=== PATIENT | male | born 1985 ===

== ENCOUNTER 2017-10-12 14:39 | Inpatient (IN) | payer OTHER ==
[2017-10-12 14:49] VITALS: O2SAT 99
--- NOTE | 2017-10-12 15:49 | ED PDOC ---
HPI: Psych/Substance Abuse Time Seen by Provider: 10/12/17 15:14 Chief Complaint (Nursing): Psychiatric Evaluation Chief Complaint (Provider): Crisis evaluation History Per: Patient History/Exam Limitations: no limitations Onset/Duration Of Symptoms: Intermittent Episodes, Persistent Current Symptoms Are (Timing): Still Present Associated Symptoms: Anxiety, Depression, Suicidal Thoughts. denies: Suicidal Plan Additional Complaint(s): 32yo male, with no past medical history, presents to ED for evaluation as he has been "struggling." Patient states intermittently for the past couple years, he has been having episodes where he feels normal and then he feels "down for a couple months". Patient states recently he has been having suicidal thoughts but denies a plan. Patient reports he has been using marijuana to self medicate as well as has taken "pills" from a friend who suffers from anxiety to help with his own symptoms. Patient reports increased familial stress. Denies any medical complaints. Past Medical History Reviewed: Historical Data, Nursing Documentation, Vital Signs Vital Signs: Last Vital Signs Temp 97.0 F L 10/12/17 14:45 Pulse 89 10/12/17 14:45 Resp 16 10/12/17 14:45 BP 148/98 H 10/12/17 14:45 Pulse Ox 99 10/12/17 14:45 - Medical History PMH: Asthma - Surgical History Surgical History: No Surg Hx - Family History Family History: States: No Known Family Hx, Unknown Family Hx - Social History Current smoker - smoking cessation education provided: No Ex-Smoker (has not smoked in the last 12 months): No Alcohol: None Drugs: Cannabis - Immunization History Hx Tetanus Toxoid Vaccination: (updated 6 months ago as per patient) - Home Medications Home Medications: Ambulatory Orders Medication Instructions Recorded Amoxicillin/Potassium Clav 1 tab PO BID #14 tab 04/26/15 [Augmentin 500 mg-125 mg] Acetaminophen/Hydrocodone Bi 1 tab PO QID PRN #10 tab 08/08/15 [Vicodin 300 mg-5 mg] - Allergies Allergies/Adverse Reactions: Allergies Allergy/AdvReac Type Severity Reaction Status Date / Time No Known Allergies Allergy Verified 09/09/16 03:28 Review of Systems ROS Statement: Except As Marked, All Systems Reviewed And Found Negative Psych: Positive for: Anxiety, Depression, Suicidal ideation Physical Exam - Reviewed Nursing Documentation Reviewed: Yes Vital Signs Reviewed: Yes - Physical Exam Appears: Positive for: Non-toxic Skin: Positive for: Normal Color Eye Exam: Positive for: Normal appearance, EOMI, PERRL Neck: Positive for: Normal, Supple Cardiovascular/Chest: Positive for: Regular Rate, Rhythm Respiratory: Positive for: Normal Breath Sounds. Negative for: Respiratory Distress Gastrointestinal/Abdominal: Positive for: Normal Exam, Soft. Negative for: Tenderness Extremity: Positive for: Normal ROM. Negative for: Deformity, Swelling Neurologic/Psych: Positive for: Alert, Oriented. Negative for: Motor/Sensory Deficits - Laboratory Results Result Diagrams: 10/12/17 16:15 10/12/17 16:15 - ECG O2 Sat by Pulse Oximetry: 99 (RA) Pulse Ox Interpretation: Normal Medical Decision Making Medical Decision Making: Time: 1525 Impression: Crisis evaluation Plan: -- CBC -- Alcohol serum -- CMP -- UDS -- Urinalysis -- Crisis evaluation -- 1:1 observation Reassess pt is medically cleared. pt will require admission to psychiatric unit for anxiety under MD Carly Scribe Attestation: Documented by Alisha Stapleton acting as a scribe for JAIRO Up Provider Attestation: All medical record entries made by the Scribe were at my direction and personally dictated by me. I have reviewed the chart and agree that the record accurately reflects my personal performance of the history, physical exam, medical decision making, and the department course for this patient. I have also personally directed, reviewed, and agree with the discharge instructions and disposition. Disposition - Clinical Impression Clinical Impression: Anxiety - Patient ED Disposition Is Patient to be Admitted: Yes - Disposition Disposition Time: 18:48 Condition: STABLE Forms: [facility] (Chinese) - Pt Status Changed To: Hospital Disposition Of: Inpatient - Admit Certification Admit to Inpatient:: After my assessment, the patient will require hospitalization for at least two midnights. This is because of the severity of symptoms shown, intensity of services needed, and/or the medical risk in this patient being treated as an outpatient.
[2017-10-12 16:19] LABS: BASO # 0.1 K/uL (0.0-0.2); BASO % 1.2 % (0.0-2.0); EOS % 0.6 % (0.0-4.0); HEMATOCRIT 45.7 % (35.0-51.0); LYMPH # 0.8 K/uL (1.0-4.3); LYMPH % 10.2 % (20.0-40.0); MEAN CELL VOLUME 83.1 fl (80.0-94.0); MEAN CORPUSCULAR HEMOGLOBIN 27.5 pg (27.0-31.0); MEAN CORPUSCULAR HGB CONC 33.1 g/dL (33.0-37.0); MEAN PLATELET VOLUME 7.9 fl (7.2-11.7); MONO # 0.6 K/uL (0.0-0.8); MONO % 7.4 % (0.0-10.0); NEUT # 6.3 K/uL (1.8-7.0); NEUT % 80.6 % (50.0-75.0); NRBC % 0.1 % (0.0-0.0); WHITE BLOOD COUNT 7.8 K/uL (4.8-10.8)
[2017-10-12 16:31] LABS: ALB/GLOB RATIO 1.4 (1.0-2.1); ALCOHOL SERUM < 10 mg/dl (0-10); ALKALINE PHOSPHATASE 82 U/L (38-126); ALT/SGPT 53 U/L (21-72); AST/SGOT 27 U/L (17-59); BILIRUBIN,TOTAL 0.3 mg/dl (0.2-1.3); BLOOD UREA NITROGEN 15 mg/dl (9-20); CALCIUM 9.4 mg/dL (8.4-10.2); CARBON DIOXIDE 23 mmol/L (22-30); CHLORIDE 108 mmol/L (98-107); GFR AFRICAN-AMERICAN > 60; GLUCOSE,RANDOM 90 mg/dL (75-110); POTASSIUM 3.7 MMOL/L (3.6-5.0); SODIUM 143 mmol/l (132-148); TOTAL PROTEIN 7.8 G/DL (6.3-8.2)
[2017-10-12 18:08] LABS: RBC URINE 1 /hpf (0-3); URINE BILIRUBIN NEGATIVE (NEGATIVE); URINE BLOOD NEGATIVE (NEGATIVE); URINE COLOR YELLOW (YELLOW); URINE GLUCOSE (UA) NEG (Normal); URINE KETONE TRACE mg/dL (NEGATIVE); URINE LEUKOCYTE ESTERASE NEG Leu/uL (Negative); URINE PROTEIN NEGATIVE (NEGATIVE); URINE UROBILINOGEN 0.2-1.0 mg/dL (0.2-1.0); WBC URINE 2 /hpf (0-5)
[2017-10-12] MEDS ORDERED: Magnesium Hydroxide Susp 30 ml UD PO PRN (21:15)
[2017-10-12] MEDS ORDERED: Alum-Mag Hydrox-Simethicone Susp (30 mL) PO PRN (21:15)
[2017-10-12] MEDS ORDERED: DiphenhydrAMINE 50 mg/ml Inj IM PRN (21:15)
--- NOTE | 2017-10-12 21:42 | PCM.BM ---
<Sarahy Yanes - Last Filed: 10/12/17 21:40> Treatment Plan Problems - Problems identified on initial assessmt Anxiety Date Initiated: 10/12/17 Time Initiated: 21:40 Assessment reference: NA Status: Active Altered Sleep Patterns Date Initiated: 10/12/17 Time Initiated: 21:40 Assessment reference: NA Status: Active Treatment assets and liabiliti Patient Assests: cooperative, ADL independent, physically healthy, good support system Patient Liabilities: substance abuse - Milieu Protocol Maintain good personal hygiene: every shift Encourage regular showers, every shift Remind patient to perform daily oral care Conduct patient checks and document Observation sheet: Q15 minutes Maintain personal safety: every shift Educate patient to report safety concerns to staff, every shift Monitor environment for contraband/sharps Medication safety: Monitor for expected outcome, potential side effects: every shift, Assess barriers to learning: every shift, Assess readiness for medication education: every shift <Praveen Galdamez J - Last Filed: 10/16/17 13:12> Discharge/Continuing Care - Education Needs Education Needs: Patient Medication, Patient Diagnosis/Disease Process, Patient Coping Skills, Patient Anger Management skills, Patient Placement options, Patient Community resources - Discharge Discharge Criteria: Tolerates medication w/o severe side effects, Free of agitation, No longer exhibiting s/s of withdrawal, Reduction of target symptoms Discharge to:: Home - Treatment Team Participation Patient/Family/SO Statement: 10/16/17 13:13 Pt was remorseful about his cocaine usage and expressed the desire to remain sober after discharge from the hospital. Pt discussed his difficulty acknowledging his mental illness and that he has fears of what others will think about him if they discover he is hospitalized for anxiety and depression. Was Patient/Family/SO present at Treatment Team Meeting: Yes <Christy Larkin - Last Filed: 10/16/17 17:31> - Diagnosis (1) Generalized anxiety disorder Status: Acute Interventions: 10/16/17 17:31 psychotherapy phamacotherapy
[2017-10-13 07:11] LABS: T4 7.95 ug/dl (5.5-11.0)
[2017-10-13 07:25] LABS: THYROID STIMULATING HORMONE 0.83 mIU/ML (0.46-4.68)
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
--- NOTE | 2017-10-13 16:46 | CP.PCM.CON ---
History of Present Illness - History of Present Illness History of Present Illness: Hospitalist Consult Note 32 year old male unremarkable PMHx admitted to psychiatric unit for worsening depression with suicidal ideations. Patient tearful at this visit. Patient states he has been feeling depressed and anxious for the past few weeks, unknown why this started. Patient admits to experiencing suicidal ideations after being overwhelmed at work today which led him to present to [facility] ED. Patient has not sought help in the past and denies taking any medications; however, admits taking his friends anxiety medication in the past to help him sleep. Denies auditory/visual hallucinations. Denies homicidal ideations. Patient otherwise has no medical complaints. Denies N/V/F/D/C/SOB/palpitations. PMHx: unremarkable PSH: none FH: depression (mother), DM (father) SH: occasional ETOH, 1 pack per week for 16 years, cocaine and marijauna use; lives with mother; works at [employer] in [place] Meds: none All: NKDA Review of Systems - Review of Systems All systems: reviewed and no additional remarkable complaints except (as per HPI ) Past Patient History - Past Social History Alcohol: None Drugs: Cannabis - CARDIAC Hx Cardiac Disorders: No Hx Hypertension: No - PULMONARY Hx Tuberculosis: No - NEUROLOGICAL HX Cerebrovascular Accident: No Hx Seizures: No - HEENT Hx HEENT Problems: No - RENAL Hx Chronic Kidney Disease: No - ENDOCRINE/METABOLIC Hx Endocrine Disorders: No - HEMATOLOGICAL/ONCOLOGICAL Hx Cancer: No Hx Human Immunodeficiency Virus (HIV): No - INTEGUMENTARY Hx Dermatological Problems: No - MUSCULOSKELETAL/RHEUMATOLOGICAL Hx Musculoskeletal Disorders: No - GASTROINTESTINAL Hx Gastrointestinal Disorders: No - GENITOURINARY/GYNECOLOGICAL Hx Sexually Transmitted Disorders: No - PSYCHIATRIC Hx Substance Use: Yes (mj) - SURGICAL HISTORY Hx Surgeries: No - ANESTHESIA Hx Anesthesia: No Meds Allergies/Adverse Reactions: Allergies Allergy/AdvReac Type Severity Reaction Status Date / Time No Known Allergies Allergy Verified 09/09/16 03:28 - Medications Medications: Current Medications Acetaminophen (Tylenol 325mg Tab) 650 mg PO Q4 PRN PRN Reason: pain level 1 to 7 Al Hydrox/Mg Hydrox/Simethicone (Maalox Plus 30 Ml) 30 ml PO Q4 PRN PRN Reason: Dyspepsia Diphenhydramine HCl (Benadryl) 50 mg IM Q6 PRN PRN Reason: Extrapyramidal S/S Unable PO Diphenhydramine HCl (Benadryl) 50 mg PO Q6 PRN PRN Reason: Extrapyramidal Symptoms Last Admin: 10/13/17 12:54 Dose: 50 mg Diphenhydramine HCl (Benadryl) 50 mg PO HS PRN PRN Reason: Sleep Gabapentin (Neurontin) 100 mg PO TID SHERMAN Last Admin: 10/13/17 14:53 Dose: Not Given Haloperidol (Haldol) 5 mg PO Q4 PRN PRN Reason: Agitation Last Admin: 10/13/17 12:55 Dose: 5 mg Haloperidol Lactate (Haldol) 5 mg IM Q4 PRN PRN Reason: Agitation, Unable to Take PO Lorazepam (Ativan) 2 mg IM Q4 PRN PRN Reason: Anxiety/Agitation,Unable PO Lorazepam (Ativan) 2 mg PO Q4 PRN PRN Reason: Anxiety/Agitation Last Admin: 10/13/17 12:54 Dose: 2 mg Magnesium Hydroxide (Milk Of Magnesia) 30 ml PO HS PRN PRN Reason: Constipation Quetiapine Fumarate (Seroquel) 100 mg PO HS SHERMAN Physical Exam - Constitutional Appears: Well, Non-toxic, No Acute Distress - Head Exam Head Exam: ATRAUMATIC, NORMAL INSPECTION, NORMOCEPHALIC - Eye Exam Eye Exam: EOMI, Normal appearance, PERRL Pupil Exam: NORMAL ACCOMODATION - ENT Exam ENT Exam: Mucous Membranes Moist, Normal Exam - Neck Exam Neck exam: Positive for: Normal Inspection. Negative for: Tenderness - Respiratory Exam Respiratory Exam: Clear to Auscultation Bilateral, NORMAL BREATHING PATTERN. absent: Rales, Rhonchi - Cardiovascular Exam Cardiovascular Exam: REGULAR RHYTHM, +S1, +S2. absent: Diastolic murmur, JVD, Systolic Murmur - GI/Abdominal Exam GI & Abdominal Exam: Normal Bowel Sounds, Soft. absent: Distended, Guarding, Tenderness - Rectal Exam Rectal Exam: Deferred - Extremities Exam Extremities exam: Positive for: full ROM, normal inspection. Negative for: tenderness - Back Exam Back exam: NORMAL INSPECTION. absent: tenderness - Neurological Exam Neurological exam: Alert, CN II-XII Intact, Oriented x3 - Psychiatric Exam Psychiatric exam: Anxious, Depressed, Suicidal Ideation - Skin Skin Exam: Intact, Normal Color, Warm Results - Vital Signs Recent Vital Signs: Last Vital Signs Temp 97.5 F L 10/13/17 09:00 Pulse 75 10/13/17 09:00 Resp 18 10/13/17 09:00 BP 118/58 L 10/13/17 09:00 Pulse Ox 99 10/12/17 20:15 - Labs Result Diagrams: 10/12/17 16:15 10/12/17 16:15 Labs: Laboratory Results - last 24 hr 10/12/17 10/12/17 10/13/17 17:58 17:58 05:50 Hemoglobin A1c Triglycerides 123 Cholesterol 152 LDL Cholesterol Direct 97 HDL Cholesterol 35 Thyroxine (T4) 7.95 TSH 3rd Generation 0.83 Urine Color Yellow Urine Clarity Clear Urine pH 7.0 Ur Specific [place] 1.016 Urine Protein Negative Urine Glucose (UA) Neg Urine Ketones Trace Urine Blood Negative Urine Nitrate Negative Urine Bilirubin Negative Urine Urobilinogen 0.2-1.0 Ur Leukocyte Esterase Neg Urine RBC (Auto) 1 Urine Microscopic WBC 2 Urine Opiates Screen Negative Urine Methadone Screen Negative Ur Barbiturates Screen Negative Ur Phencyclidine Scrn Negative Ur Amphetamines Screen Negative U Benzodiazepines Scrn Negative U Oth Cocaine Metabols Negative U Cannabinoids Screen Positive H 10/13/17 05:50 Hemoglobin A1c 5.3 Triglycerides Cholesterol LDL Cholesterol Direct HDL Cholesterol Thyroxine (T4) TSH 3rd Generation Urine Color Urine Clarity Urine pH Ur Specific [place] Urine Protein Urine Glucose (UA) Urine Ketones Urine Blood Urine Nitrate Urine Bilirubin Urine Urobilinogen Ur Leukocyte Esterase Urine RBC (Auto) Urine Microscopic WBC Urine Opiates Screen Urine Methadone Screen Ur Barbiturates Screen Ur Phencyclidine Scrn Ur Amphetamines Screen U Benzodiazepines Scrn U Oth Cocaine Metabols U Cannabinoids Screen Assessment & Plan - Assessment and Plan (Free Text) Assessment: Depression Management per psychiatry
--- NOTE | 2017-10-14 13:56 | PCM.PYCHPN ---
Psychiatric Progress Note - Psychiatric Progress Note Patient seen today, length of contact: pt evaluated discussed with team chart reviewed Patient Chief Complaint: I am so anxious and worried about my job Problems Identified/Issues Discussed: pt on evaluation anxious , irritable,edgy, continues to feel down, reported most of his anxiety due to worry about his job and his family pt denied any current suicidal or homicidal ideations, denied perceptual disturbances Medical Problems: no current medical problems reported DSM 5 Symptoms Update: bipolar disorder depressed generalized anxiety disorder Medication Change: Yes (increase seroquel and neurontin) Medical Record Reviewed: Yes Mental Status Examination - Cognitive Function Orientation: Person, Place Attention: Poor Concentration: Poor Association: WNL Fund of Knowledge: WNL - Mood Mood: Depressed, Anxious - Affect Affect: Constricted, Depressed - Speech Speech: Appropriate - Formal Thought Process Formal Thought Process: Circumstantial - Suicidal Ideation Suicidal Ideation: No - Homicidal Ideation Homicidal Ideation: No Goal/Treatment Plan - Goal/Treatment Plan Need for Continued Stay: Severe depression anxiety, Discharge may exacerbated symptoms Progress Toward Problem(s) and Goals/Treatment Plan: increase to seroquel 300mg daily for depression with plan to uptitrate increase neurontin to 200mg tid for anxiety supportive and group therapy and CBT
--- NOTE | 2017-10-15 13:06 | PCM.PYCHPN ---
Psychiatric Progress Note - Psychiatric Progress Note Patient seen today, length of contact: pt evaluated discussed with team chart reviewed Patient Chief Complaint: I am less anxious but i could not sleep last night Problems Identified/Issues Discussed: pt on evaluation less anxious ,and less irritable, continues to feel down, reported most of his anxiety due to worry about his job and his family reported poor quality of sleep last night , no changes in appetite pt denied any current suicidal or homicidal ideations, denied perceptual disturbances Medical Problems: no current medical problems reported Medication Change: Yes (increase seroquel ) Medical Record Reviewed: Yes Mental Status Examination - Cognitive Function Orientation: Person, Place Attention: Poor Concentration: Poor Association: WNL Fund of Knowledge: WNL - Mood Mood: Depressed, Anxious - Affect Affect: Constricted, Depressed - Speech Speech: Appropriate - Formal Thought Process Formal Thought Process: Circumstantial - Suicidal Ideation Suicidal Ideation: No - Homicidal Ideation Homicidal Ideation: No Goal/Treatment Plan - Goal/Treatment Plan Need for Continued Stay: Severe depression anxiety, Discharge may exacerbated symptoms Progress Toward Problem(s) and Goals/Treatment Plan: increase to seroquel 200mg qhs and 100mg daily continue with neurontin 200mg tid for anxiety supportive and group therapy and CBT Estimated Date of D/C: 10/19/17
--- NOTE | 2017-10-16 17:56 | PCM.PYCHPN ---
Psychiatric Progress Note - Psychiatric Progress Note Patient seen today, length of contact: pt evaluated discussed with team chart reviewed Patient Chief Complaint: I am less anxious but I am worried about work Problems Identified/Issues Discussed: pt on evaluation less anxious ,and less irritable, continues to feel down, reported most of his anxiety due to worry about his job and his family, reported the visit with his girl friend last night went well , reported improved sleep with the increase in seroquel , no changes in appetite pt denied any current suicidal or homicidal ideations, denied perceptual disturbances Medical Problems: no current medical problems reported Medication Change: No Medical Record Reviewed: Yes Mental Status Examination - Cognitive Function Orientation: Person, Place Attention: Poor Concentration: Poor Association: WNL Fund of Knowledge: WNL - Mood Mood: Depressed, Anxious - Affect Affect: Constricted, Depressed - Speech Speech: Appropriate - Formal Thought Process Formal Thought Process: Circumstantial - Suicidal Ideation Suicidal Ideation: No - Homicidal Ideation Homicidal Ideation: No Goal/Treatment Plan - Goal/Treatment Plan Need for Continued Stay: Severe depression anxiety, Discharge may exacerbated symptoms Progress Toward Problem(s) and Goals/Treatment Plan: seroquel 300mg qhs continue with neurontin 200mg tid for anxiety supportive and group therapy and CBT Estimated Date of D/C: 10/19/17
--- NOTE | 2017-10-17 11:18 | PCM.PYCHPN ---
Psychiatric Progress Note - Psychiatric Progress Note Patient seen today, length of contact: pt evaluated discussed with team chart reviewed Patient Chief Complaint: I did not sleep well, still anxious about my little daughter Problems Identified/Issues Discussed: pt on evaluation less irritable, but continues to be anxious, reported most of his anxiety due to worry about his job and his family, reported decreased sleep with early insomnia , no changes in appetite, no side effects of medications pt denied any current suicidal or homicidal ideations, denied perceptual disturbances Medical Problems: no current medical problems reported Medication Change: Yes (increase seroquel) Medical Record Reviewed: Yes Mental Status Examination - Cognitive Function Orientation: Person, Place Attention: WNL Association: WNL Fund of Knowledge: WNL - Mood Mood: Anxious - Affect Affect: Constricted, Depressed - Speech Speech: Appropriate - Formal Thought Process Formal Thought Process: Circumstantial Psychotic Thoughts and Behaviors: denied psycchotic symptoms, non elicited - Suicidal Ideation Suicidal Ideation: No - Homicidal Ideation Homicidal Ideation: No Goal/Treatment Plan - Goal/Treatment Plan Need for Continued Stay: Severe depression anxiety, Discharge may exacerbated symptoms Progress Toward Problem(s) and Goals/Treatment Plan: seroquel 300mg qhs continue with neurontin 200mg tid for anxiety supportive and group therapy and CBT Estimated Date of D/C: 10/19/17
--- NOTE | 2017-10-18 12:08 | PCM.PYCHPN ---
Psychiatric Progress Note - Psychiatric Progress Note Patient seen today, length of contact: pt evaluated discussed with team chart reviewed Patient Chief Complaint: I THINK i AM BETTER TODAY Problems Identified/Issues Discussed: pt on evaluation less irritable, and less anxious, reported better sleep , no changes in appetite, no side effects of medications pt denied any current suicidal or homicidal ideations, denied perceptual disturbances Medical Problems: no current medical problems reported DSM 5 Symptoms Update: bipolar disorder depressed generalized anxiety disorder Medication Change: No Medical Record Reviewed: Yes Mental Status Examination - Cognitive Function Orientation: Person, Place Attention: WNL Association: WNL Fund of Knowledge: WNL - Mood Mood: Anxious - Affect Affect: Constricted, Depressed - Speech Speech: Appropriate - Formal Thought Process Formal Thought Process: Circumstantial Psychotic Thoughts and Behaviors: denied psychotic symptoms, denied perceptual disturbances, non elicited - Suicidal Ideation Suicidal Ideation: No - Homicidal Ideation Homicidal Ideation: No Goal/Treatment Plan - Goal/Treatment Plan Need for Continued Stay: Severe depression anxiety, Discharge may exacerbated symptoms Progress Toward Problem(s) and Goals/Treatment Plan: continue seroquel 300mg qhs for mood stabilization continue with neurontin 200mg tid for anxiety supportive and group therapy and CBT Estimated Date of D/C: 10/19/17
[2017-10-19 09:38] VITALS: BP 113/58; PULSE 73; RESP 18; TEMP 97.2
--- NOTE | 2017-10-19 11:23 | PCM.PYCHDC ---
Mental Status Examination - Mental Status Examination Orientation: Person, Place, Situation Mood: Neutral Affect: Broad Speech: Appropriate Attention: WNL Concentration: WNL Association: WNL Fund of Knowledge: WNL Formal Thought Process: No Impairment Description of patient's judgement and insight: fair insight and poor judgment Psychotic Thoughts and Behaviors: denied psychotic symptoms, denied perceptual disturbances, non elicited Suicidal Ideation: No Current Homicidal Ideation?: No Discharge Summary - Discharge Note Reason for Hospitalization: pt requested help patient is a 32 year old Single male presenting with passive suicidal ideations. Patient tearful upon meeting reported that he is very emotional anxious and depressed for at least past month. Patient reported on day of evaluation he started experiencing suicidal ideation . He stated that he does not have a plan He stated that this is what prompted him to seek out help. He reported no psychiatric admissions nor any medications. He is currently on probation for an aggravated assault charge. He reported numerous charges in the past such as possession. Patient reported a substance abuse history but stated he does not use like he used to in the past. Patient stated that he used last week cocaine, alcohol (4-5 beers), marijuana (a couple of pulls of a blunt), and smokes daily 6-7 cigarettes. Patient stated he has changed his life around and does not indulge daily with drugs. Patient was focused on his stressors and appears to be concerned about the of his new baby daughter (2weeks old ) Patient has three children and is looking forward to getting help so he can be a better father.pt also reported irritability with poor impulse control, denied psychotic symptoms denied homicidal ideations Consultations:: List each consultation separately and include: 1. Reason for request. 2. Findings. 3. Follow-up Summary of Hospital Course include:: 1. Description of specific treatment plan utilized for patients during their course of treatmen. 2. Summarize the time- course for resolution of acute symptoms and/or regressed behaviors. 3. Describe issues identified and worked on during hospitalization. 4. Describe medication utilized. 5. Describe medical problems identified and treated. 6. Reassessment of suicide risk Summary of Hospital Course: albaro is a 32 year old Single male presenting with passive suicidal ideations. Patient tearful upon meeting reported that he is very emotional anxious and depressed for at least past month. Patient reported on day of evaluation he started experiencing suicidal ideation . He stated that he does not have a plan He stated that this is what prompted him to seek out help. He reported no psychiatric admissions nor any medications. He is currently on probation for an aggravated assault charge. He reported numerous charges in the past such as possession. Patient reported a substance abuse history but stated he does not use like he used to in the past. Patient stated that he used last week cocaine, alcohol (4-5 beers), marijuana (a couple of pulls of a blunt), and smokes daily 6-7 cigarettes. Patient stated he has changed his life around and does not indulge daily with drugs. 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
== END 2017-10-19 15:21 | disposition home or self-care (01) | DRG 430 ==
LOC: H.ER 14:39 → H.ERHOLD 18:48 → H.PSYCH 20:28
PROVIDERS: ADMIT Psychiatry & Neurology Psychiatry; ATTEND Psychiatry & Neurology Psychiatry
PROC: GZHZZZZ Group Psychotherapy (ICD-10-PCS; principal; 2017-10-12)
PROC: GZ51ZZZ Individual Psychotherapy, Behavioral (ICD-10-PCS; 2017-10-12)
DX: F31.9 Bipolar disorder, unspecified (principal); R45.851 Suicidal ideations; F06.4 Anxiety disorder due to known physiological condition; F41.1 Generalized anxiety disorder; G47.00 Insomnia, unspecified; J45.909 Unspecified asthma, uncomplicated; Z65.3 Problems related to other legal circumstances; Z81.8 Family history of other mental and behavioral disorders; Z83.3 Family history of diabetes mellitus; F12.980 Cannabis use, unspecified with anxiety disorder